=== PATIENT | male | born 1940 | race Hispanic/Latino ===

== ENCOUNTER 2017-06-16 06:11 | Day surgery (SDC) | payer MEDICARE ==
[~2017-06-16] VITALS: Ht 162.6 cm; Wt 57.1 kg
[~2017-06-16 06:11] MED LIST: FELO10TA31 PO; LOSA1TAB54 PO; SIMV10TA6 PO; SULFAD500 PO
[2017-06-16] MEDS ORDERED: SODIUM CHLORIDE 0.9% 1000ML 1,000 ML IV ONE (06:48)
[2017-06-16] MEDS ORDERED: PROPOFOL 1000 MG/100 ML 100 ML IV ONE (06:48)
[2017-06-16] MEDS ORDERED: GLYCOPYRROLATE 0.2 MG/ML 5 ML VIAL ONE (06:49)
[2017-06-16 06:59] VITALS: BP 162/68
[2017-06-16 08:06] VITALS: BP 101/54
== END 2017-06-16 08:35 ==
LOC: DAH 06:11 → ENDO 06:11
PROVIDERS: ATTEND Internal Medicine Gastroenterology
DX: D12.2 Benign neoplasm of ascending colon (principal); K51.90 Ulcerative colitis, unspecified, without complications; K21.9 Gastro-esophageal reflux disease without esophagitis; I10 Essential (primary) hypertension; E78.5 Hyperlipidemia, unspecified; M19.90 Unspecified osteoarthritis, unspecified site; K57.30 Diverticulosis of large intestine without perforation or abscess without bleeding
CPT/HCPCS: 45380; 45385; 82948; 88305; 93005; A4606; J2704; J3490; J7030